=== PATIENT | male | born 1970 | race Caucasian/White ===

== ENCOUNTER 2023-11-14 15:01 | Emergency (ER) | payer MEDICAID, SELFPAY ==
[2023-11-14 15:11] VITALS: BP 142/86; PULSE 73; RESP 18; TEMP 36.6; O2SAT 97; BMI 28.2
--- NOTE | 2023-11-14 15:19 | ED_ITS ---
HPI - Abdominal Pain General Chief Complaint: Abdominal Pain <Vinny Self MD - Last Filed: 11/14/23 15:20> Stated Complaint: stomach pain <Vinny Self MD - Last Filed: 11/14/23 15:20> Time Seen by Provider: 11/14/23 15:11 <Vinny Self MD - Last Filed: 11/14/23 15:20> History of Present Illness HPI narrative: Patient is a healthy 53-year-old gentleman with no history of abdominal issues who presents with 48 hours of left lower quadrant pain. He has no radiculopathy no nausea no vomiting no fevers no chills. Patient has no blood in his stool infectious having normal bowel movements. Patient has had no changes diet. The pain is 6/10 and dull. No other significant issues. Patient is otherwise usual state of health. His only home medication is fluoxetine. <Vinny Self MD - Last Filed: 11/14/23 15:20> Related Data Home Medications: Home Medications ?Medication ?Instructions ?Recorded ?Confirmed fluoxetine 10 mg capsule mg PO 11/14/23 <Vinny Self MD - Last Filed: 11/14/23 15:20> Allergies/Adverse Reactions: Allergies Allergy/AdvReac Type Severity Reaction Status Date / Time No Known Drug Allergies Allergy Verified 11/14/23 15:32 <Vinny Self MD - Last Filed: 11/14/23 15:20> Review of Systems Status of ROS Reports: 10 or more systems reviewed and unremarkable except as noted in History and below <Vinny Self MD - Last Filed: 11/14/23 15:20> [facility] Social History: Social History Non-prescribed substance use: denies use <Vinny Self MD - Last Filed: 11/14/23 15:20> Exam Narrative: Exam Narrative: EXAM GENERAL: Patient appears comfortable and well. EYES: No scleral icterus. LYMPH: No supraclavicular or cervical lymphadenopathy. SKIN: Visible skin seen during exam normal or with benign process only. EXT: No dependent lower extremity pedal edema. HEART: Regular rate and rhythm with no murmurs, rubs, or gallops. LUNGS: Clear to auscultation bilaterally with no crackles or wheezes. ABD: Primarily soft with hypoactive bowel sounds. Tenderness to palpation noted in the left lower quadrant. PSYCH: Good eye contact, speech is not pressured. <Vinny Self MD - Last Filed: 11/14/23 15:20> Const: Vital Signs, click to edit/add: Vital Signs - 24 hr 11/14/23 15:11 Temperature 97.9 F Pulse Rate [Right Pulse Oximeter] 73 Respiratory Rate 18 Blood Pressure [Ri ght Upper Arm] 142/86 H Pulse Oximetry 97 Oxygen Delivery Me thod Room Air <Vinny Self MD - Last Filed: 11/14/23 15:20> Vital Signs, click to edit/add: Vital Signs - 24 hr 11/14/23 15:11 Temperature 97.9 F Pulse Rate [Right Pulse Oximeter] 73 Respiratory Rate 18 Blood Pressure [Ri ght Upper Arm] 142/86 H Pulse Oximetry 97 Oxygen Delivery Me thod Room Air <Elena Dietrich MD - Last Filed: 11/14/23 17:57> Course Course ED Course: Patient seen and examined. CBC CMP amylase UA CT abdomen pelvis pending. <Vinny Self MD - Last Filed: 11/14/23 15:20> Patient seen and examined. CBC CMP amylase UA CT abdomen pelvis pending. I was asked to take over the care of this patient. CBC was entirely normal. Chemistries and LFTs were entirely normal. Amylase slightly elevated at 103, normal lipase. Urinalysis entirely normal. CT scan was unremarkable. Question of potential gallstone, however this is not where the patient is having pain. I did go ever conversation with the patient regarding his results. We discussed that he does have a moderate amount of stool in the GI system which could cause discomfort. We also discussed the possibility of abdominal wall pain in the form of pulled muscle or the possibility of a very tiny kidney stone that we are missing. <Elena Dietrich MD - Last Filed: 11/14/23 17:57> Vital Signs Vital signs: Initial Vital Signs Temperature 97.9 F 11/14/23 15:11 Temperature Source Temporal Artery Scan 11/14/23 15:11 Pulse Rate 73 11/14/23 15:11 Respiratory Rate 18 11/14/23 15:11 Blood Pressure 142/86 H 11/14/23 15:11 Blood Pressure Mean 104 11/14/23 15:11 Blood Pressure Position Sitting 11/14/23 15:11 Pulse Oximetry 97 11/14/23 15:11 Oxygen Delivery Method Room Air 11/14/23 15:11 Vital Signs Temperature 97.9 F 11/14/23 15:11 Pulse Rate 73 11/14/23 15:11 Respiratory Rate 18 11/14/23 15:11 Blood Pressure 142/86 H 11/14/23 15:11 Pulse Oximetry 97 11/14/23 15:11 Oxygen Delivery Method Room Air 11/14/23 15:11 Temperature 97.9 F 11/14/23 15:11 Pulse Rate 73 11/14/23 15:11 Respiratory Rate 18 11/14/23 15:11 Blood Pressure 142/86 H 11/14/23 15:11 Pulse Oximetry 97 11/14/23 15:11 Oxygen Delivery Method Room Air 11/14/23 15:11 <Vinny Self MD - Last Filed: 11/14/23 15:20> Initial Vital Signs Temperature 97.9 F 11/14/23 15:11 Temperature Source Temporal Artery Scan 11/14/23 15:11 Pulse Rate 73 11/14/23 15:11 Respiratory Rate 18 11/14/23 15:11 Blood Pressure 142/86 H 11/14/23 15:11 Blood Pressure Mean 104 11/14/23 15:11 Blood Pressure Position Sitting 11/14/23 15:11 Pulse Oximetry 97 11/14/23 15:11 Oxygen Delivery Method Room Air 11/14/23 15:11 Vital Signs Temperature 97.9 F 11/14/23 15:11 Pulse Rate 73 11/14/23 15:11 Respiratory Rate 18 11/14/23 15:11 Blood Pressure 142/86 H 11/14/23 15:11 Pulse Oximetry 97 11/14/23 15:11 Oxygen Delivery Method Room Air 11/14/23 15:11 Temperature 97.9 F 11/14/23 15:11 Pulse Rate 73 11/14/23 15:11 Respiratory Rate 18 11/14/23 15:11 Blood Pressure 142/86 H 11/14/23 15:11 Pulse Oximetry 97 11/14/23 15:11 Oxygen Delivery Method Room Air 11/14/23 15:11 <Elena Dietrich MD - Last Filed: 11/14/23 17:57> MDM - Abdominal Pain MDM Narrative Medical decision making narrative: 56-year-old male with abdominal pain. Unclear etiology at this time. Potential differential diagnoses includes constipation, muscular pain, very small kidney stone. At this time we discussed increasing water intake, daily MiraLax and follow-up as needed. <Elena Dietrich MD - Last Filed: 11/14/23 17:57> Lab Data Attestation: I reviewed the patient's lab results. <Elena Dietrich MD - Last Filed: 11/14/23 17:57> Labs: Lab Results 11/14/23 11/14/23 Range/Units 15:30 16:25 WBC 8.80 (4.50-11.00) K/uL RBC 4.93 (4.30-5.90) m/uL Hgb 14.5 (13.5-17.5) gm/dL Hct 43.0 (37.0-53.0) % MCV 87 (80-100) fL MCH 29 (26-34) pg MCHC 34 (32-36) gm/dL RDW Coeff of Sherri 12.4 (11.5-15.5) % Plt Count 229 (140-440) K/uL Neut % (Auto) 65.9 (42.0-72.0) % Lymph % (Auto) 25.6 (20-44) % [place] % (Auto) 5.9 (0.0-11.0) % Eos % (Auto) 2.0 (0.0-7.0) % Baso % (Auto) 0.6 (0.0-3.0) % Neut # (Auto) 5.80 (1.7-7.0) K/uL Lymph # (Auto) 2.25 (0.90-2.90) K/uL [place] # (Auto) 0.50 (0.00-0.90) K/UL Eos # (Auto) 0.18 (0.00-0.50) K/uL Baso # (Auto) 0.05 (0.00-0.30) K/uL Abs Immat Gran (auto) 0.00 (0.00-0.30) K/uL Imm/Tot Granulo (auto) 0.0 % Sodium 142 (135-149) mmol/L Potassium 4.1 (3.6-5.1) mmol/L Chloride 108 (96-114) mmol/L Carbon Dioxide 24 (20-32) mmol/L Anion Gap 10 (7-15) mEq/L BUN 19 (7-30) mg/dL Creatinine 1.2 (0.5-1.5) mg/dL Estimated Creat Clear 64.98 Estimated GFR 73 ml/min Glucose 86 (60-115) mg/dL Calcium 9.7 (8.4-10.6) mg/dL Total Bilirubin 0.4 (0.1-1.5) mg/dL AST 30 (12-35) U/L ALT 22 (4-50) U/L Alkaline Phosphatase 58 (40-150) U/L Total Protein 7.6 (6.0-8.3) g/dL Albumin 4.7 (3.3-5.0) g/dL Amylase 103 H (18-89) U/L Lipase 107 (23-300) U/L Urine Color Yellow (Yellow) Urine Appearance Clear (Clear) Urine pH 6.5 (5.0-8.5) Ur Specific [place] 1.025 (1.000-1.030) Urine Protein Negative (Negative) Urine Glucose (UA) Negative (Negative) Urine Ketones Negative (Negative) Urine Blood Negative (Negative) Urine Nitrite Negative (Negative) Urine Bilirubin Negative (Negative) Urine Urobilinogen 0.2 (0.2-1.0) Ur Leukocyte Esterase Negative (Negative) Lab Acknowledgement Test Added <Vinny Self MD - Last Filed: 11/14/23 15:20> Lab Results 11/14/23 11/14/23 Range/Units 15:30 16:25 WBC 8.80 (4.50-11.00) K/uL RBC 4.93 (4.30-5.90) m/uL Hgb 14.5 (13.5-17.5) gm/dL Hct 43.0 (37.0-53.0) % MCV 87 (80-100) fL MCH 29 (26-34) pg MCHC 34 (32-36) gm/dL RDW Coeff of Sherri 12.4 (11.5-15.5) % Plt Count 229 (140-440) K/uL Neut % (Auto) 65.9 (42.0-72.0) % Lymph % (Auto) 25.6 (20-44) % [place] % (Auto) 5.9 (0.0-11.0) % Eos % (Auto) 2.0 (0.0-7.0) % Baso % (Auto) 0.6 (0.0-3.0) % Neut # (Auto) 5.80 (1.7-7.0) K/uL Lymph # (Auto) 2.25 (0.90-2.90) K/uL [place] # (Auto) 0.50 (0.00-0.90) K/UL Eos # (Auto) 0.18 (0.00-0.50) K/uL Baso # (Auto) 0.05 (0.00-0.30) K/uL Abs Immat Gran (auto) 0.00 (0.00-0.30) K/uL Imm/Tot Granulo (auto) 0.0 % Sodium 142 (135-149) mmol/L Potassium 4.1 (3.6-5.1) mmol/L Chloride 108 (96-114) mmol/L Carbon Dioxide 24 (20-32) mmol/L Anion Gap 10 (7-15) mEq/L BUN 19 (7-30) mg/dL Creatinine 1.2 (0.5-1.5) mg/dL Estimated Creat Clear 64.98 Estimated GFR 73 ml/min Glucose 86 (60-115) mg/dL Calcium 9.7 (8.4-10.6) mg/dL Total Bilirubin 0.4 (0.1-1.5) mg/dL AST 30 (12-35) U/L ALT 22 (4-50) U/L Alkaline Phosphatase 58 (40-150) U/L Total Protein 7.6 (6.0-8.3) g/dL Albumin 4.7 (3.3-5.0) g/dL Amylase 103 H (18-89) U/L Lipase 107 (23-300) U/L Urine Color Yellow (Yellow) Urine Appearance Clear (Clear) Urine pH 6.5 (5.0-8.5) Ur Specific [place] 1.025 (1.000-1.030) Urine Protein Negative (Negative) Urine Glucose (UA) Negative (Negative) Urine Ketones Negative (Negative) Urine Blood Negative (Negative) Urine Nitrite Negative (Negative) Urine Bilirubin Negative (Negative) Urine Urobilinogen 0.2 (0.2-1.0) Ur Leukocyte Esterase Negative (Negative) Lab Acknowledgement Test Added <Elena Dietrich MD - Last Filed: 11/14/23 17:57> Imaging Data CT scan - abdomen: Attestation: I have reviewed the pertinent imaging results. <Elena Dietrich MD - Last Filed: 11/14/23 17:57> Radiologist's impression: Technique: Volumetric multidetector CT images of the abdomen and pelvis were obtained after the administration of intravenous contrast. 85 cc Isovue 370 low osmolar intravenous contrast Comparison: None available. Findings: The lung bases are clear. The liver is normal in attenuation without intrahepatic biliary ductal dilatation. The portal vein is patent. Contracted gallbladder with calcified gallstone. There is no significant common biliary ductal dilatation or abrupt cut off. The spleen is normal in enhancement and size. The stomach and duodenum are grossly unremarkable. The pancreas is normal in enhancement without significant atrophy. The adrenal glands are unremarkable. The kidneys demonstrate preserved corticomedullary differentiation without evidence of obstructive uropathy. Moderate stool is seen throughout the colon with distal colonic diverticulosis w ithout evidence of diverticulitis. The appendix is unremarkable. There is no significant mesenteric, retroperitoneal, or pelvic sidewall lymph nodes. The aorta is nonaneurysmal. There is no significant atherosclerotic disease appreciated. The solid pelvic viscera are grossly unremarkable. There is no free fluid or free air. The anterior abdominal wall is intact without significant hernias. The lumbar vertebral body heights are grossly maintained with minimal retrolisthesis L3 on L4. Impression: Contracted gallbladder with radiopaque calculus. Moderate stool seen throughout the colon with minimal distal colonic diverticulosis without definite evidence of diverticulitis. No other acute intra-abdominal abnormality is appreciated. <Elena Dietrich MD - Last Filed: 11/14/23 17:57> Discharge Plan Discharge Clinical Impression: Abdominal pain <Vinny Self MD - Last Filed: 11/14/23 15:20> Patient Disposition: Home, Self-Care <Vinny Self MD - Last Filed: 11/14/23 15:20> Condition: Stable <Vinny Self MD - Last Filed: 11/14/23 15:20> Additional Instructions: We were not able to pinpoint the exact cause of your pain today. However, there is no evidence of any life-threatening issues causing it. Things had to cause abdominal pain include constipation, very tiny kidney stone that we missed on scan or potentially muscular pain of the abdominal wall. Recommend increasing daily water intake, starting daily MiraLax and taking it for at least 2 weeks. If you start vomiting or develops any fevers, return to the ER. Okay to take ibuprofen or Tylenol as needed for discomfort. <Vinny Self MD - Last Filed: 11/14/23 15:20> Activity Level: No Restrictions <Vinny Self MD - Last Filed: 11/14/23 15:20> No Restrictions <Elena Dietrich MD - Last Filed: 11/14/23 17:57> Discharge Diet: Regular <Vinny Self MD - Last Filed: 11/14/23 15:20> Regular <Elena Dietrich MD - Last Filed: 11/14/23 17:57> Prescriptions: No Action fluoxetine 10 mg capsule PO <Vinny Self MD - Last Filed: 11/14/23 15:20> Follow Up/Referrals: Ej Romero MD [Primary Care Provider] - <Vinny Self MD - Last Filed: 11/14/23 15:20> Stand Alone Forms: [facility] Info Instructions <Vinny Self MD - Last Filed: 11/14/23 15:20>
--- NOTE | 2023-11-14 15:21 | CRLHL7_ITS ---
For Patients: As a result of the Century Cures Act, medical imaging exams and procedure reports are released immediately into your electronic medical record. You may view this report before your referring provider. If you have questions, please contact your health care provider. Indication: Left-sided abdominal pain Technique: Volumetric multidetector CT images of the abdomen and pelvis were obtained after the administration of intravenous contrast. 85 cc Isovue 370 low osmolar intravenous contrast Comparison: None available. Findings: The lung bases are clear. The liver is normal in attenuation without intrahepatic biliary ductal dilatation. The portal vein is patent. Contracted gallbladder with calcified gallstone. There is no significant common biliary ductal dilatation or abrupt cut off. The spleen is normal in enhancement and size. The stomach and duodenum are grossly unremarkable. The pancreas is normal in enhancement without significant atrophy. The adrenal glands are unremarkable. The kidneys demonstrate preserved corticomedullary differentiation without evidence of obstructive uropathy. Moderate stool is seen throughout the colon with distal colonic diverticulosis without evidence of diverticulitis. The appendix is unremarkable. There is no significant mesenteric, retroperitoneal, or pelvic sidewall lymph nodes. The aorta is nonaneurysmal. There is no significant atherosclerotic disease appreciated. The solid pelvic viscera are grossly unremarkable. There is no free fluid or free air. The anterior abdominal wall is intact without significant hernias. The lumbar vertebral body heights are grossly maintained with minimal retrolisthesis L3 on L4. Impression: Contracted gallbladder with radiopaque calculus. Moderate stool seen throughout the colon with minimal distal colonic diverticulosis without definite evidence of diverticulitis. No other acute intra-abdominal abnormality is appreciated. Please note that all CT scans at this facility use dose modulation, iterative reconstruction, and/or weight-based dosing when appropriate to reduce radiation dose to as low as reasonably achievable. Dictated by Pepito Heller MD @ 11/14/2023 4:06:00 PM (Electronically Signed)
[2023-11-14 15:51] LABS: Basophils Absolute Auto 0.05 K/uL (0.00-0.30); Basophils Percent Auto 0.6 % (0.0-3.0); Eosinophils Absolute Auto 0.18 K/uL (0.00-0.50); Hemoglobin* 14.5 gm/dL (13.5-17.5); Lymphocytes Absolute Auto 2.25 K/uL (0.90-2.90); Lymphocytes Percent Auto 25.6 % (20-44); Mean Corpuscular HGB Conc 34 gm/dL (32-36); Mean Corpuscular Hemoglobin 29 pg (26-34); Mean Corpuscular Volume 87 fL (80-100); Monocytes Percent Auto 5.9 % (0.0-11.0); Neutrophils Percent Auto 65.9 % (42.0-72.0); Platelet Count* 229 K/uL (140-440); RDW Coefficient of Variation % 12.4 % (11.5-15.5); Red Blood Count 4.93 m/uL (4.30-5.90)
[2023-11-14 15:55] LABS: Slide Review Reflex No
[2023-11-14 16:03] LABS: Appearance Urine Clear (Clear); Bilirubin Urine Negative (Negative); Blood Urine Negative (Negative); Color Urine Yellow (Yellow); Glucose Urine Negative (Negative); Ketones Urine Negative (Negative); Leukocyte Esterase Urine Negative (Negative); Nitrite Urine Negative (Negative); Protein Urine Negative (Negative); Specific Gravity Urine 1.025 (1.000-1.030); Urobilinogen Urine 0.2 (0.2-1.0); pH Urine 6.5 (5.0-8.5)
[2023-11-14 16:04] LABS: Albumin* 4.7 g/dL (3.3-5.0); Chloride* 108 mmol/L (96-114); Potassium* 4.1 mmol/L (3.6-5.1); Sodium* 142 mmol/L (135-149)
[2023-11-14 16:06] LABS: Amylase* 103 U/L (18-89)
[2023-11-14 16:07] LABS: Alanine Aminotransferase* 22 U/L (4-50); Alkaline Phosphatase* 58 U/L (40-150); Anion Gap 10 mEq/L (7-15); Aspartate Amino Transferase* 30 U/L (12-35); Bilirubin Total* 0.4 mg/dL (0.1-1.5); Blood Urea Nitrogen* 19 mg/dL (7-30); Calcium* 9.7 mg/dL (8.4-10.6); Carbon Dioxide* 24 mmol/L (20-32); Creatinine* 1.2 mg/dL (0.5-1.5); Est. Creatinine Clearance* 64.98; Estimated Glomerular Filt Rate 73 ml/min; Glucose* 86 mg/dL (60-115); Total Protein* 7.6 g/dL (6.0-8.3)
[2023-11-14 17:25] LABS: Lipase* 107 U/L (23-300)
== END 2023-11-14 18:07 | disposition home or self-care (01) ==
PROVIDERS: Internal Medicine; Emergency Provider Family Medicine; PCP Surgery
DX: R10.32 Left lower quadrant pain (principal)
CPT/HCPCS: 36415; 74177; 80053; 81003; 82150; 83690; 85025; 99283; 99284; Q9967